=== PATIENT | female | born 1935 | race Caucasian/White ===

== ENCOUNTER 2018-01-28 12:32 | Emergency (ER) | payer MEDICARE, BC ==
[2018-01-28] MEDS ORDERED: ACETAMINOPHEN 325 MG TABLET PO STA (13:07)
--- NOTE | 2018-01-28 13:10 | ED Physician Documentation ---
PD HPI HEADACHE - Stated complaint Stated Complaint: HEAD PX - Chief complaint Chief Complaint: Heent - History obtained from History obtained from: Patient, Family (daughter Jasmina) - History of Present Illness Timing - onset: Other (Starting 2 nights ago she developed sharp pain from the top of the right shoulder up into the right side of the head that has been constant ever since. It was especially severe at 1 AM this morning when basically she was debilitated by it and she felt like nothing was working especially her arms. She took an aspirin and that did not help. She denies any trouble with her vision, history of headaches, nausea, vomiting, or hearing difficulty. She does think it might be coming from her right ear and she tried some antibiotic ointment on a Q-tip in there. There is no associated chest pain or trouble breathing.) Review of Systems Ten Systems: 10 systems reviewed and negative Constitutional: denies: Fever, Chills Eyes: denies: Loss of vision, Decreased vision Ears: reports: Ear pain. denies: Loss of hearing, Drainage/discharge, Tinnitus/ ringing, Foreign body Nose: denies: Rhinorrhea / runny nose, Congestion Neurologic: reports: Headache. 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 - Present Medications Home Medications: Ambulatory Orders Medication Instructions Recorded Confirmed Levothyroxine Sodium 01/28/18 Meclizine HCl 01/28/18 Oxybutynin Chloride 2.5 mg PO 01/28/18 - Allergies Allergies/Adverse Reactions: Allergies Allergy/AdvReac Type Severity Reaction Status Date / Time acetaminophen [From Vicodin] Allergy Unknown Verified 01/28/18 12:46 hydrocodone [From Vicodin] Allergy Unknown Verified 01/28/18 12:46 - Social History Does the pt smoke?: No Smoking Status: Never smoker PD ED PE NORMAL - Vitals Vital signs reviewed: Yes - General General: Alert and oriented X 3, No acute distress, Other (She has some intermittent coarse jerking from prior surgery gone long that has been constant for the last 8 years and is unchanged for the daughter.) - HEENT HEENT: PERRL, EOMI, Other (Mild tenderness of both temples.) - Neck Neck: Supple, no meningeal sign, No bony TTP - Cardiac Cardiac: RRR, No murmur - Respiratory Respiratory: No respiratory distress, Clear bilaterally - Abdomen Abdomen: Non tender - Derm Derm: Normal color, Warm and dry, No rash - Extremities Extremities: No edema, No calf tenderness / cord, Other (She has some difficulty with full ROM of the right shoulder d/t pain) - Neuro Neuro: Alert and oriented X 3, Other (Equal patellar reflexes, equal sensation throughout the upper extremities with normal real estate development manager strength, thumb extension, interosseous strength bilaterally.) Eye Opening: Spontaneous Motor: Obeys Commands Verbal: Oriented GCS Score: 15 - Psych Psych: Normal mood, Normal affect Results - Vitals Vitals: Vital Signs - 24 hr 01/28/18 01/28/18 12:43 14:22 Temperature 36.4 C L 36.7 C Heart Rate 64 60 Respiratory 17 18 Rate Blood Pressure 125/63 99/53 L O2 Saturation 98 97 Oxygen O2 Source Room air - EKG (time done) 1322 Rate: Rate (enter#) (56) Rhythm: NSR [place]: Normal Intervals: Normal [place] QRS: Normal Ischemia: Normal ST segments Computer interpretation: Agree with computer - Labs Labs: Laboratory Tests 01/28/18 01/28/18 01/28/18 13:16 13:16 13:16 WBC 3.9 L RBC 3.94 L Hgb 12.7 Hct 37.6 MCV 95.4 MCH 32.2 H MCHC 33.8 RDW 13.4 Plt Count 176 MPV 7.7 L Neut # 2.1 Lymph # 1.1 L [place] # 0.5 Eos # 0.2 Baso # 0.0 Absolute Nucleated RBC 0.00 Nucleated RBC % 0.1 ESR 33 H Sodium 136 Potassium 4.0 Chloride 104 Carbon Dioxide 24 Anion Gap 8.0 BUN 16 Creatinine 0.8 Estimated GFR (MDRD) 68 L Glucose 93 Calcium 8.8 Total Bilirubin 0.5 AST 17 ALT 10 Alkaline Phosphatase 60 Troponin I C-Reactive Protein < 1.0 Total Protein 6.8 Albumin 3.7 Globulin 3.1 Albumin/Globulin Ratio 1.2 Lipase 20 L 01/28/18 13:16 WBC RBC Hgb Hct MCV MCH MCHC RDW Plt Count MPV Neut # Lymph # [place] # Eos # Baso # Absolute Nucleated RBC Nucleated RBC % ESR Sodium Potassium Chloride Carbon Dioxide Anion Gap BUN Creatinine Estimated GFR (MDRD) Glucose Calcium Total Bilirubin AST ALT Alkaline Phosphatase Troponin I < 0.04 C-Reactive Protein Total Protein Albumin Globulin Albumin/Globulin Ratio Lipase - Rads (name of study) CT head Radiology: EMP read contemporaneously (WILI lin) PD MEDICAL DECISION MAKING - ED course ED course: 82-year-old woman with a few days of an acute headache, could be muscular. Could also be shingles, although there is no rash at this juncture. Her examination is only remarkable for Mild temporal artery tenderness but her sed rate and CRP suggest against the diagnosis of temporal arteritis. She and her daughter were advised to watch out for new or worsening symptoms and look for a shingles rash. Departure - Departure Disposition: 01 Home, Self Care Clinical Impression: Headache Qualifiers: Headache type: unspecified Headache chronicity pattern: acute headache Intractability: not intractable Qualified Code(s): R51 - Headache Condition: Good Record reviewed to determine appropriate education?: Yes Instructions: ED Cephalgia Unspecified Comments: Call your doctor to arrange a follow-up appointment, make the next available appointment. In the interim, return anytime if worse or if new symptoms develop.
[2018-01-28 13:23] LABS: BASOPHILS % (AUTO) 0.3 %; EOSINOPHILS # (AUTO) 0.2 10^3/uL (0.0-0.7); HGB - HEMOGLOBIN 12.7 g/dL (12.0-16.0); LYMPHOCYTES # (AUTO) 1.1 10^3/uL (1.5-3.5); LYMPHOCYTES % (AUTO) 28.4 %; MEAN CORPUSCULAR HEMOGLOBIN 32.2 pg (27.0-31.0); MEAN CORPUSCULAR HGB CONC 33.8 g/dL (32.0-36.0); MEAN CORPUSCULAR VOLUME 95.4 fL (81.0-99.0); MEAN PLATELET VOLUME 7.7 fL (7.9-10.8); MONOCYTES # (AUTO) 0.5 10^3/uL (0.0-1.0); NEUTROPHILS # (AUTO) 2.1 10^3/uL (1.5-6.6); NEUTROPHILS % (AUTO) 53.3 %; PLT - PLATELET COUNT 176 10^3/uL (130-450); RED BLOOD COUNT 3.94 10^6/uL (4.20-5.40); RED CELL DISTRIBUTION WIDTH 13.4 % (12.0-15.0); WHITE BLOOD COUNT 3.9 x10^3/uL (4.8-10.8)
[2018-01-28 13:41] LABS: ALBUMIN 3.7 g/dL (3.2-5.5); ALBUMIN/GLOBULIN RATIO 1.2 (1.0-2.2); ALKALINE PHOSPHATASE 60 IU/L (42-121); ALT ALANINE AMINOTRANSFERASE 10 IU/L (10-60); AST ASPARTATE AMINOTRANSFERASE 17 IU/L (10-42); BILIRUBIN,TOTAL 0.5 mg/dL (0.2-1.0); BUN - BLOOD UREA NITROGEN 16 mg/dL (6-20); CALCIUM 8.8 mg/dL (8.5-10.3); CARBON DIOXIDE - CO2 24 mmol/L (21-32); CHLORIDE 104 mmol/L (101-111); CREATININE 0.8 mg/dL (0.4-1.0); GFR - MDRD 68 (>89); GLUCOSE 93 mg/dL (70-100); LIPASE 20 U/L (22-51); SODIUM 136 mmol/L (135-145); TOTAL PROTEIN 6.8 g/dL (6.7-8.2)
[2018-01-28 13:44] LABS: CRP - C-REACTIVE PROTEIN < 1.0 mg/dL (0-1.0)
--- NOTE | 2018-01-28 14:18 | CT Report ---
EXAM: CT HEAD EXAM DATE: 01/28/2018 01:40 PM. CLINICAL HISTORY: 82-year-old with right-sided headache. Evaluate for intracranial pathology. COMPARISON: None. TECHNIQUE: Multiaxial CT images were obtained from the foramen magnum to the vertex. Reformats: Coron al. IV contrast: None. In accordance with CT protocol optimization, one or more of the following dose reduction techniques w ere utilized for this exam: automated exposure control, adjustment of mA and/or KV based on patient s ize, or use of iterative reconstructive technique. FINDINGS: Parenchyma: No intraparenchymal hemorrhage. No evidence of mass, midline shift, or CT findings of inf arction. Little-white differentiation is distinct. Mild bilateral areas of white matter hyperattenuatio n seen appear chronic. Extraaxial Spaces: Normal for age. No subdural or epidural collections identified. Ventricles: Normal in size and position. Sinuses and Orbits: Changes of bilateral lens replacement. Mild mucosal thickening of the maxillary s inuses. Mastoid air cells and middle ear cavities appear clear. Bones: No evidence of fracture or calvarial defect. Other: Vascular calcifications of the cavernous ICA segments. IMPRESSION: 1. No acute infarct, intracranial hemorrhage, mass, hydrocephalus, or midline shift. 2. Mild white matter changes that appear chronic suggestive of chronic small vessel ischemic disease. [facility] Referring Provider Line: [phone] SITE ID: [id number]
[2018-01-28 14:22] VITALS: BP 99/53
== END 2018-01-28 14:46 | disposition home or self-care (01) ==
LOC: ED 12:32
DX: R51 Headache (principal); R93.0 Abnormal findings on diagnostic imaging of skull and head, not elsewhere classified
CPT/HCPCS: 36415; 70450; 80053; 83690; 84484; 85025; 85651; 86140; 93005; 99283; 99284; A9270

== ENCOUNTER 2019-04-15 10:05 | Outpatient (CLI) | payer MEDICARE, BC ==
--- NOTE | 2019-04-15 11:03 | XRAY Report ---
Reason: SIDE LOW BACK PAIN Procedure Date: 04/15/2019 Accession Number: [id number] / [id number] Procedure: XR - Lumbar Spine 2 View CPT Code: FULL RESULT: EXAM: LUMBOSACRAL SPINE RADIOGRAPHY EXAM DATE: 04/15/2019 10:44 AM. CLINICAL HISTORY: LOW BACK PAIN. COMPARISONS: None. TECHNIQUE: 3 views. FINDINGS: Alignment: Loss of normal lordosis. No significant scoliosis. Bones: Five acl-lqx-ehzqnno lumbar vertebral bodies are present. No fractures or bone lesions. Disks: Approximate 2-3 mm of L4 retrolisthesis with respect to L3 without significant disk height narrowing. Marked disk height narrowing at L4-L5 with associated anterior spondylosis. No significant subluxation. Mild disk height narrowing at L5-S1 without significant subluxation. Facets: No degenerative changes. Sacroiliac Joints: Mild bilateral osteoarthritis without joint effusion. Soft Tissues: Normal. The visualized bowel gas pattern is normal. IMPRESSION: 1. No evidence of compression fracture. 2. Moderately severe multilevel lower lumbar scoliosis as described above. [facility]
--- NOTE | 2019-04-15 11:11 | XRAY Report ---
Reason: SIDE LOW BACK PAIN Procedure Date: 04/15/2019 Accession Number: [id number] / [id number] Procedure: XR - Thoracic Spine 2 View CPT Code: FULL RESULT: EXAM: THORACIC SPINE RADIOGRAPHY EXAM DATE: 04/15/2019 10:44 AM. CLINICAL HISTORY: Chronic BACK PAIN. COMPARISON: None. TECHNIQUE: 2 views. FINDINGS: Alignment: Normal. No spondylolisthesis or scoliosis. Bones: No fractures or bone lesions. Disks: Mild level spondylosis middle one third, without significant disk height narrowing. Soft Tissues: Normal. The visualized lungs and cardiomediastinal silhouette are normal. IMPRESSION: No acute abnormality. [facility]
== END 2019-04-15 10:06 | disposition home or self-care (01) ==
LOC: DI 10:05
PROVIDERS: ATTEND Physician Assistant Medical
DX: M43.16 Spondylolisthesis, lumbar region (principal); M51.36 Other intervertebral disc degeneration, lumbar region; M47.814 Spondylosis without myelopathy or radiculopathy, thoracic region
CPT/HCPCS: 72070; 72100

== ENCOUNTER 2019-08-14 08:03 | Emergency (ER) | payer MEDICARE, BC ==
--- NOTE | 2019-08-14 08:59 | ED Physician Documentation ---
PD HPI LOWER EXT INJURY - Stated complaint Stated Complaint: R LEG/HIP PX - Chief complaint Chief Complaint: Ext Problem - History obtained from History obtained from: Patient - History of Present Illness PD HPI LOW EXT INJURY LOCATION: Right, Hip, Other (some in lower back) Type of injury: Twist (was getting conditioning physical therapy for the first time, with stretching of the left leg up to her chest, patient felt onset of pain right posterior hip and lower back.). No: Fall Where injury occurred: Home (lives at [facility] and was getting PT there for conditioning.) Timing - onset: How many weeks ago (1) Timing - duration: Weeks (1) Timing - details: Abrupt onset, Still present (hurts with bending and turning; pain mainly right SI/posterior hip but also in low back.) Improved by: Rest Worsened by: Moving. No: Palpating Associated symptoms: No: Weakness, Numbness Contributing factors: No: Prior ortho surgery Similar symptoms before: Has not had sx before Review of Systems Constitutional: denies: Fever Nose: denies: Rhinorrhea / runny nose, Congestion Throat: denies: Sore throat Respiratory: denies: Cough GI: denies: Abdominal Pain, Nausea, Vomiting : denies: Dysuria, Frequency Skin: denies: Rash, Lesions Neurologic: denies: Focal weakness, Numbness PD PAST MEDICAL HISTORY - Past Medical History Past Medical History: Yes Endocrine/Autoimmune: HyPOthyroidism - Past Surgical History Past Surgical History: Yes /TIRE MANAGER: Hysterectomy - Present Medications Home Medications: Ambulatory Orders Medication Instructions Recorded Confirmed Levothyroxine Sodium 01/28/18 Meclizine HCl 01/28/18 Oxybutynin Chloride 2.5 mg PO 01/28/18 Naproxen 375 mg PO BID #20 tablet 08/14/19 Tramadol HCl 50 mg PO Q6H PRN #20 tablet 08/14/19 - Allergies Allergies/Adverse Reactions: Allergies Allergy/AdvReac Type Severity Reaction Status Date / Time acetaminophen [From Vicodin] Allergy Unknown Verified 08/14/19 08:15 hydrocodone [From Vicodin] Allergy Unknown Verified 08/14/19 08:15 - Social History Does the pt smoke?: No Smoking Status: Never smoker PD ED PE NORMAL - Vitals Vital signs reviewed: Yes - General General: Alert and oriented X 3, No acute distress, Well developed/nourished - Derm Derm: Normal color, Warm and dry - Extremities Extremities: Other (right lower back tender fourdrinier at lateral muscles and also at SI area. No rash nor sores. Anterior hip not tender. No pain with impaction of the thigh. ) - Neuro Neuro: Alert and oriented X 3, No motor deficit, No sensory deficit, Normal speech Results - Vitals Vitals: Vital Signs - 24 hr 08/14/19 08/14/19 08:12 12:03 Temperature 36.7 C 36.7 C Heart Rate 62 54 L Respiratory 16 16 Rate Blood Pressure 124/73 125/77 O2 Saturation 99 97 Oxygen O2 Source Room air - Rads (name of study) lumbar CT Radiology: Prelim report reviewed (possible nondisp fx right lateral 5th transverse process. SI arthritis. ), See rad report pelvis CT Radiology: Prelim report reviewed (SI arthritis (? sacral ala fx, but lumbar scan read as arthritic).), See rad report PD MEDICAL DECISION MAKING - ED course Complexity details: considered differential (mainly SI and muscle strain, but CT showing possible transverse process fx. ), d/w patient Departure - Departure Disposition: 01 Home, Self Care Clinical Impression: Sacroiliac strain Qualifiers: Encounter type: initial encounter Qualified Code(s): S39.012A - Strain of muscle, fascia and tendon of lower back, initial encounter Lumbar transverse process fracture Qualifiers: Encounter type: initial encounter Fracture type: closed Qualified Code(s): S32.009A - Unspecified fracture of unspecified lumbar vertebra, initial encounter for closed fracture Condition: Stable Record reviewed to determine appropriate education?: Yes Instructions: ED Fx Transverse Spinous Process Follow-Up: Micha Johnson DO [Primary Care Provider] - Prescriptions: Naproxen 375 mg PO BID #20 tablet Tramadol HCl 50 mg PO Q6H PRN #20 tablet PRN Reason: Pain Comments: The pelvis scan shows some arthritis in the SI joint and your exam is consistent with some arthritis and pain there. The lumbar part of the scan shows a possible nondisplaced transverse process fracture. This is an attachment point for muscles in the low back so may have torqued it and caused a fracture during the exercise. Activity as tolerated. Light stretching and physical therapy is okay. Naproxen anti-inflammatory twice daily for the next 7 to 10 days with food. Add Tylenol 500 mg 4 times a day for the next week as well. As needed for pain. Add tramadol every 6 hours if needed for worse pain. Follow-up with your primary care in about a week, call for an appointment. Discharge Date/Time: 08/14/19 12:56
[2019-08-14] MEDS ORDERED: NAPROXEN 250 MG TABLET PO STA (09:31)
[2019-08-14] MEDS ORDERED: CHERRY SYRUP 10 ML UDC PO ONE (09:31)
[2019-08-14] MEDS ORDERED: traMADol 50 MG TABLET PO STA (09:31)
[2019-08-14] MEDS ORDERED: DEXAMETHASONE 10 MG/ML VIAL PO STA (09:31)
[2019-08-14 12:03] VITALS: BP 125/77
--- NOTE | 2019-08-14 12:04 | CT Report ---
Reason: low back and right posterior pelvic pain Procedure Date: 08/14/2019 Accession Number: [id number] / [id number] Procedure: CT - PELVIS WO CPT Code: FULL RESULT: EXAM: CT BONY PELVIS WITHOUT CONTRAST EXAM DATE: 08/14/2019 11:38 AM. CLINICAL HISTORY: Low back and right posterior pelvic pain. COMPARISON: None. TECHNIQUE: Thin-section axial images were acquired of the pelvis without contrast. Post-processing: Coronal and sagittal reformats. Other: None. In accordance with CT protocol optimization, one or more of the following dose reduction techniques were utilized for this exam: automated exposure control, adjustment of mA and/or KV based on patient size, or use of iterative reconstructive technique. FINDINGS: Bones: There is a small linear lucent focus within the right L5 transverse process which may represent a nondisplaced fracture or nutrient vessel foramen. Juxta articular sclerosis at the anterior aspect of the right SI joint. Focal sclerosis at the anteromedial aspect of the left iliac bone, adjacent to the left SI joint. Sacroiliac Joints: Mild arthritic changes at the right SI joint. Symphysis Pubis: Moderate to severe arthritic changes at the pubic symphysis. Right Hip: Moderate to severe osteoarthritis. Left Hip: Mild to moderate osteoarthritis. Musculature: Normal. No fatty atrophy. Pelvic Cavity: There is moderate sigmoid colon diverticulosis. Calcified plaques at the abdominal aorta and iliac arteries. No free fluid or lymphadenopathy. Previous hysterectomy. Other: No lymphadenopathy. No free air or free fluid. The other visualized soft tissues are unremarkable. IMPRESSION: 1. Small linear lucent focus within the right L5 transverse process suspicious for nondisplaced fracture or nutrient foramen. 2. Mild arthritic changes at the right SI joint. 3. Moderate to severe arthritic changes at the pubic symphysis. 4. Bilateral hip osteoarthritis, right more than left. 5. Moderate sigmoid colon diverticulosis. [facility]
--- NOTE | 2019-08-14 12:05 | CT Report ---
Reason: low back and right posterior pelvic pain Procedure Date: 08/14/2019 Accession Number: [id number] / [id number] Procedure: CT - LUMBAR SPINE WO CPT Code: FULL RESULT: EXAM: CT LUMBAR SPINE WITHOUT CONTRAST EXAM DATE: 08/14/2019 11:38 AM. CLINICAL HISTORY: Low back and right posterior pelvic pain. COMPARISONS: LUMBAR SPINE 2 VIEW 04/15/2019 10:20 AM. TECHNIQUE: Thin-section axial images were acquired of the lumbar spine from T12 to S1 without contrast. Post-processing: Coronal and sagittal reformats. Other: None. In accordance with CT protocol optimization, one or more of the following dose reduction techniques were utilized for this exam: automated exposure control, adjustment of mA and/or KV based on patient size, or use of iterative reconstructive technique. FINDINGS: Alignment: No significant change of alignment. Approximately 5 mm degenerative anterolisthesis of L3 on L4. Slight degenerative anterolisthesis of L2 on L3. Bones: Five ejr-xwv-wxodzgs lumbar vertebral bodies are present. Lumbar vertebral body heights are maintained. No displaced pars defect. Abnormal irregularity of the contours of the anterior cortex of the upper lateral sacrum. Adjacent to this are findings of ill-defined somewhat increased bone density. These findings are suggestive of age-indeterminate potentially acute to subacute incompletely healed sacral fractures, likely of the insufficiency variety. Cortical displacement is minimal. Unhealed nondisplaced fracture of the right L5 transverse process. This may be acute, no significant reparative changes are evident. No other evidence of acute lumbar spine fracture. Probable generalized skeletal demineralization. Disk Levels/Facets: T12-L1: Mild chronic degenerative changes without significant stenosis. L1-L2: Mild degenerative changes are present but without evidence of significant stenosis. L2-L3: Moderate disk degeneration and facet arthropathy. Thickened ligamentum flavum. Marginal spurring. Minimal vacuum disk. Circumferential disk bulge. Mild stenosis of the central canal and neural foramina. L3-L4: Mild disk degeneration. Moderate to marked facet arthropathy. Facet spurring and ligamentum flavum thickening. Circumferential disk bulge. Mild foraminal stenosis but at least moderate stenosis of the central canal and lateral recesses. L4-L5: Severe chronic disk degeneration. Marked disk space narrowing with vacuum disk phenomenon. Marginal spurring and prominent chronic diskogenic sclerosis. Shallow circumferential bulge. Mild marginal spurring. Mild facet arthropathy. Patent central canal. Mild right and mild to moderate left foraminal stenosis. L5-S1: Moderate disk degeneration. Markedly narrow disk space with vacuum disk phenomenon. Marginal spurring. Mild facet arthropathy. Shallow broad-based bulge. Posterior marginal spurring with extension of spurring laterally into both neural foramina which are moderately stenotic. Patent central canal. Musculature: Mild/moderate diffuse fatty atrophy. Other: Extensive aortoiliac atherosclerotic calcifications. At least mild SI joint DJD. Prominent probable exophytic renal cortical cyst at the lower pole of the right kidney. IMPRESSION: 1. Bilateral sacral ala fractures and nondisplaced fracture of the right L5 transverse process. 2. Prominent chronic multilevel hypertrophic degenerative lumbar spinal spondylosis. 3. Approximately 5 mm degenerative anterolisthesis of L3 on L4. 4. Degenerative central canal and lateral recess stenosis is most prominent at the L3-L4 level. 5. Diffuse disk degeneration, most severe at L4-L5 and L5-S1 and also notable at L2-L3. 6. Diffuse facet arthropathy, most severe at L3-L4 contributing to degenerative malalignment. 7. Multilevel foraminal stenosis, most prominent but chronic appearing bilaterally at L5-S1. [facility]
== END 2019-08-14 12:56 | disposition home or self-care (01) ==
LOC: ED 08:03
DX: S32.058A Other fracture of fifth lumbar vertebra, initial encounter for closed fracture (principal); S39.012A Strain of muscle, fascia and tendon of lower back, initial encounter; X50.1XXA Overexertion from prolonged static or awkward postures, initial encounter; Y93.89 Activity, other specified; Y92.129 Unspecified place in nursing home as the place of occurrence of the external cause; M47.898 Other spondylosis, sacral and sacrococcygeal region; M16.0 Bilateral primary osteoarthritis of hip; M51.37 Other intervertebral disc degeneration, lumbosacral region; M48.07 Spinal stenosis, lumbosacral region
CPT/HCPCS: 72131; 72192; 99283; 99284; A9270

== ENCOUNTER 2019-09-19 13:04 | Outpatient (CLI) | payer MEDICARE, BC ==
--- NOTE | 2019-09-20 15:46 | DEXA Report ---
Reason: FRACTURE OF 5TH LUMB VERT Procedure Date: 09/19/2019 Accession Number: [id number] / [id number] Procedure: DEX - Dexa Spine and/or Hip CPT Code: Final Report FULL RESULT: EXAM: Dexa Spine and/or Hip DATE: 09/19/2019 2:12 PM CLINICAL HISTORY: FRACTURE OF 5TH LUMB VERT TECHNIQUE: Dual energy x-ray absorptiometry (DXA) was performed on a [employer] System. Regions measured are the AP Spine, femoral neck, and if needed forearm. COMPARISON: None. In accordance with the International Society for Clinical Densitometry (ISCD) guidelines, data from previous exams may be reanalyzed using current recommendations and techniques. This is done to allow a more accurate basis for comparison with the current study. FINDINGS: The data for the lumbar spine is as follows: BMD (g/cm/cm) T-SCORE Z-SCORE REGION L1 L2 L3 1.603 3.4 4.3 L4 1.522 2.7 3.6 TOTAL 1.560 3.0 3.9 NOTE: All evaluable vertebrae are used for classification The data for the hip is as follows: BMD (g/cm/cm) T-SCORE Z-SCORE REGION Neck 0.828 -1.5 0.3 TOTAL 0.946 -0.5 1.1 NOTE: The femoral neck or total proximal femur, whichever is lowest, is used for classification. IMPRESSION: THE WHO CLASSIFICATION BASED ON THE INTERNATIONAL REFERENCE STANDARD IS OSTEOPENIA. THE FRACTURE RISK IS INCREASED. RECOMMENDATION: Patients with diagnosis of osteoporosis or osteopenia should have regular bone mineral density assessment. For those eligible for Medicare, routine testing is allowed once every 2 years. Testing frequency can be increased for patients who have rapidly progressing disease or for those who are receiving medical therapy to restore bone mass. COMMENT: World Health Organization (WHO) definitions for osteoporosis and osteopenia: NORMAL BMD: T-score at -1.0 or higher, fracture risk is low OSTEOPENIA BMD: T-score between -1.0 and -2.5, fracture risk is increased. OSTEOPOROSIS BMD: T-score at -2.5 or lower, fracture risk is high. National Osteoporosis Foundation recommends: 1. Obtain adequate dietary calcium (at least 1200 mg per day) and vitamin D (400-800 international units per day). 2. Participate, as appropriate, in regular weightbearing and muscle-strengthening exercise. 3. Avoid tobacco use and reduce alcohol and caffeine intake. 4. For more detailed information see the website at www.NOF.org.
== END 2019-09-19 13:05 | disposition home or self-care (01) ==
LOC: DI 13:04
PROVIDERS: ATTEND Family Medicine
DX: M85.88 Other specified disorders of bone density and structure, other site (principal)
CPT/HCPCS: 77080

== ENCOUNTER 2020-05-28 07:19 | Day surgery (SDC) | payer MEDICARE, BC ==
[2020-05-28] MEDS ORDERED: fentaNYL 100 MCG/2 ML VIAL IVP ONE (07:20)
[2020-05-28] MEDS ORDERED: MIDAZOLAM 2 MG/2 ML VIAL IVP ONE (07:20)
[2020-05-28] MEDS ORDERED: LACTATED RINGERS 1,000 ML IV ONE ×2 (08:04→10:10)
[2020-05-28] MEDS ORDERED: LIDO GARGLE 30 ML BOTTLE PO ONE (09:40)
[2020-05-28] MEDS ORDERED: LIDO GARGLE 30 ML BOTTLE ONE (09:42)
[2020-05-28] MEDS ORDERED: BENZOCAINE/TETRACAINE/BUTAMBEN 20 GM TOP ONE (09:46)
[2020-05-28 10:56] VITALS: BP 124/65
== END 2020-05-28 07:20 | disposition home or self-care (01) ==
LOC: SDS 07:19
PROVIDERS: ATTEND Surgery
PROC: 0DB68ZX Excision of Stomach, Via Natural or Artificial Opening Endoscopic, Diagnostic (ICD-10-PCS; 2020-05-28)
PROC: 0DB48ZX Excision of Esophagogastric Junction, Via Natural or Artificial Opening Endoscopic, Diagnostic (ICD-10-PCS; 2020-05-28)
PROC: 0DB98ZX Excision of Duodenum, Via Natural or Artificial Opening Endoscopic, Diagnostic (ICD-10-PCS; principal; 2020-05-28 09:00)
DX: K22.70 Barrett's esophagus without dysplasia (principal); K31.7 Polyp of stomach and duodenum; K29.70 Gastritis, unspecified, without bleeding; K21.0 Gastro-esophageal reflux disease with esophagitis; K44.9 Diaphragmatic hernia without obstruction or gangrene
CPT/HCPCS: 43239; A9270; J7120

== ENCOUNTER 2021-03-30 13:30 | Outpatient (CLI) | payer MEDICARE, BC ==
--- NOTE | 2021-03-30 18:04 | XRAY Report ---
PROCEDURE: Lumbar Spine 2 View INDICATIONS: ACUTE LOW BACK PAIN TECHNIQUE: 2 views of the lumbar spine were acquired. COMPARISON: Plain films 04/15/2019, CT 08/14/2019 FINDINGS: Bones: 5 seu-hvy-tiqdahe vertebrae are present. Chronic straightening of the normal lumbar lordosis and chronic grade 1 anterolisthesis of L3 on 4. Severe disc height loss and endplate sclerotic change s at L4-5, and severe disc height loss at L5-S1. There has been slight progression of asymmetric vert ebral body height loss of L3. Vertebral bodies are otherwise maintained.. No suspicious bony lesio ns. Soft tissues: Overlying bowel gas pattern is normal. No suspicious soft tissue calcifications. Abd ominal aortic atherosclerosis. IMPRESSION: 1. Since 08/14/2019, there is been progression of degenerative change the L3 vertebral body with sligh t asymmetric vertebral body height loss. No retropulsed fracture fragments. Consider MRI for assessme nt of acute edema. 2. Chronic severe degenerative disc and endplate change at L4-5 and to a lesser extent L5-S1. Reviewed by: Rachana Pepe MD on 03/30/2021 6:02 PM PDT Approved by: Rachana Pepe MD on 03/30/2021 6:02 PM PDT Station ID: [id number]
== END 2021-03-30 13:31 | disposition home or self-care (01) ==
LOC: DI 13:30
PROVIDERS: ATTEND Family Medicine
DX: M43.16 Spondylolisthesis, lumbar region (principal); M51.36 Other intervertebral disc degeneration, lumbar region; M51.37 Other intervertebral disc degeneration, lumbosacral region